=== PATIENT | male | born 1960 | race Caucasian/White ===

== ENCOUNTER 2019-09-03 06:29 | Day surgery (SDC) | payer BC ==
[2019-09-03] MEDS ORDERED: Lactated Ringers 1,000 ML IV SCH (06:30)
--- NOTE | 2019-09-03 07:36 | HP ---
DATE OF SURGERY: 09/03/2019 ADMISSION DIAGNOSIS: Esophageal varices. ANTICIPATED PROCEDURE: EGD and colonoscopy. HISTORY OF PRESENT ILLNESS: The patient has new diagnosis of serosa and presents for evaluation for possible varices. He has not had a colonoscopic examination for quite some while, six or seven years. He presents for EGD and colonoscopy. PAST MEDICAL HISTORY: ALLERGIES: NONE. MEDICATIONS: Hydrochlorothiazide. PAST SURGICAL HISTORY: Knee surgery. Gallbladder surgery. SOCIAL HISTORY: Half pack per day. ETOH Negative. FAMILY HISTORY: Negative. REVIEW OF SYSTEMS: Liver disease. PHYSICAL EXAMINATION: VITAL SIGNS: Normal. CHEST: Clear. COR: Regular. IMPRESSION/PLAN: EGD to evaluate for varices. Colonoscopy to evaluate routinely.
[2019-09-03] MEDS ORDERED: DIPRIVAN 200 MG/20 ML IV ONE (08:26)
[2019-09-03 09:30] VITALS: O2SAT 96
[2019-09-03 09:43] VITALS: BP 136/80; PULSE 60
--- NOTE | 2019-09-03 13:44 | OP ---
SURGERY DATE/TIME: 09/03/2019 0824 PREOPERATIVE DIAGNOSES: The patient has recent diagnosis of serosa and is requiring evaluation for varices. POSTOPERATIVE DIAGNOSES: The patient has recent diagnosis of serosa and is requiring evaluation for varices. PROCEDURES: 1) EGD. 2) Colonoscopy. SURGEON: Alfie Millard M.D. ANESTHESIA: MAC. COMPLICATIONS: None. CONDITION: Stable. INDICATION: He also had colon cancer resected some time ago and has not had recent exam and presents for colonoscopy. DESCRIPTION OF PROCEDURE: Taken to endoscopy. Left lateral decubitus position. MAC sedation provided. Excellent anesthesia was present. Scope introduced. Pharyngoesophageal junction normal. Esophagus normal down to gastroesophageal junction. A 2 cm rim of esophagitis grade III. No hiatal hernia. Fundus, body and antrum normal. Pylorus normal. Duodenal bulb normal. Second portion normal. The scope was withdrawn. No hiatal hernia. No additional findings. Scope withdrawn. Anal digital examination satisfactory. Scope introduced. Scope advanced to the anastomosis. Anastomosis just a little right of midline. The patient has had a right hemicolectomy. Anastomosis totally normal. The blind end was normal. The functional limb was normal for 8 inches and the scope withdrawn. On circumferential withdrawal no mucosal lesions were noted today. The patient tolerated the procedure satisfactorily. Findings discussed with the in the waiting room. PLAN: He has had previous colon cancer with resection. Plan follow up in three years.
== END 2019-09-03 09:46 | disposition home or self-care (01) ==
LOC: SDC 06:29
PROVIDERS: ATTEND Surgery
DX: I85.00 Esophageal varices without bleeding (principal); Z85.038 Personal history of other malignant neoplasm of large intestine; K20.9 Esophagitis, unspecified; Z90.49 Acquired absence of other specified parts of digestive tract; I10 Essential (primary) hypertension; Z79.899 Other long term (current) drug therapy
CPT/HCPCS: J2704